=== PATIENT | female | born 1990 | race African-American/Black ===

== ENCOUNTER 2016-08-26 02:09 | Inpatient (IN) | payer MEDICAID ==
[~2016-08-26] VITALS: Ht 160 cm; Wt 56.7 kg
[~2016-08-26 02:09] MED LIST: PREN27TA7 OR
[2016-08-26 02:42] LABS: Urine RBC None Seen /hpf (0 - 4)
[2016-08-26 02:51] LABS: Urine Bilirubin Negative (Negative); Urine Blood Negative /uL (Negative); Urine Color Yellow (Yellow); Urine Glucose Normal (Normal); Urine Ketone Negative (Negative); Urine Nitrite Negative (Negative); Urine Squamous Epithelial Cell FEW /hpf (<5); Urine Urobilinogen Normal (Negative); Urine pH 6.5 (5.0-8.0)
[2016-08-26] MEDS ORDERED: LACTATED RINGER'S 1,000 ML IV SCH (03:05)
[2016-08-26] MEDS ORDERED: LACT. RINGERS/OXYTOCIN 20UNITS 1,000 ML IV SCH ×2 (03:05→09:56)
[2016-08-26] MEDS ORDERED: LIDOCAINE 2%HCL (LOCAL ANESTH.) INJ 20ML MDV IJ PRN (03:15)
[2016-08-26] MEDS ORDERED: WITCH HAZEL-GLYCERIN PAD TOP PRN (03:15)
[2016-08-26] MEDS ORDERED: PENICILLIN G POT 5MIL/D5 50ML 50 ML IV ONE (03:15)
[2016-08-26] MEDS ORDERED: NALBUPHINE HCL 10 MG/1ml INJECTION IV PRN (03:15)
[2016-08-26] MEDS ORDERED: DERMOPLAST 60ML BOTTLE TOP PRN (03:15)
[2016-08-26] MEDS ORDERED: PHISODERM TOP SOLN 240ML BTL TOP PRN (03:15)
[2016-08-26] MEDS ORDERED: BUTORPHANOL TARTRATE 2 MG/1 ML VIAL IV PRN (03:32)
[2016-08-26 04:06] LABS: Basophils # (auto) 0 uL; Basophils % (auto) 0.3 % (0.0-2.0); CONDITION AutoValidated; DEFINITIVE SEE PRINTOUT; Eosinophils # (auto) 0 uL; Eosinophils % (auto) 0.2 % (0.0-7.0); Hematocrit 23.9 % (36.0-46.0); Lymphocytes # (auto) 1.4 uL; Lymphocytes % (auto) 14.6 % (10.0-50.0); Mean Corpuscular Hemoglobin 30.5 pg (28.0-32.0); Mean Corpuscular Hgb Conc. 33.3 g/dL (32.0-36.0); Mean Corpuscular Volume 91.7 fL (80.0-100.0); Mean Platelet Volume 8.5 fL (7.4-10.4); Monocytes # (auto) 0.7 uL; Monocytes % (auto) 6.6 % (0.0-12.0); Neutrophils # (auto) 7.7 uL; Neutrophils % (auto) 78.3 % (37.0-80.0); Red Cell Distribution Width 13.5 % (11.6-16.0); White Blood Cell 9.9 10^3/uL (4.4-10.8)
[2016-08-26 04:07] LABS: Platelet Count (auto) 233 10^3/uL (140-450)
[2016-08-26 04:14] LABS: Albumin 2.7 g/dL (3.4-5.0); BUN/Creatinine Ratio 13.3; Calcium 8.2 mg/dL (8.5-10.1); Potassium 3.4 mmol/L (3.5-5.1)
[2016-08-26 04:16] LABS: Bilirubin, Total 0.5 mg/dL (0.2-1.0); Total Protein 6.4 g/dL (6.4-8.2)
[2016-08-26 04:34] LABS: INR 0.92 (0.9-1.15); Partial Thromboplastin Time 25.9 sec (22.64-33.71)
[2016-08-26] MEDS ORDERED: fentaNYL W ROPIVACAINE 150 ML EPI SCH ×2 (05:15→06:00)
[2016-08-26] MEDS ORDERED: ePHEDrine SULFATE 50 MG/ML AMP IV ONE ×2 (05:15→06:00)
[2016-08-26] MEDS ORDERED: LIDOCAINE HCL 2 %PF INJ 10ML AMP IJ ONE (05:15)
[2016-08-26] MEDS ORDERED: NALOXONE HCL 0.4 MG/ML VIAL IV ONE ×2 (05:15→06:00)
[2016-08-26] MEDS ORDERED: fentaNYL CITRATE 100 MCG/2 ML VL IV ONE (05:15)
[2016-08-26] MEDS ORDERED: OXYTOCIN 10UNIT/ML 1ML VIAL ONE (07:04)
[2016-08-26] MEDS ORDERED: PENICILLIN G POTASSIUM 2,500,000 UNITS in D5W 5% 50 ML IV SCH (07:15)
[2016-08-26 08:00] VITALS: BP 139/68
[2016-08-26] MEDS ORDERED: LACT. RINGERS/OXYTOCIN 20UNITS 500 ML IV ONE (08:56)
[2016-08-26 09:00] VITALS: BP 127/84
[2016-08-26] MEDS ORDERED: ACETAMINOPHEN 325 MG TAB PO PRN (09:00)
[2016-08-26] MEDS: IBUPROFEN 600 MG TAB PO PRN ×2 (09:32→21:04)
[2016-08-26 11:53] VITALS: BP 100/71
[2016-08-26 16:05] VITALS: BP 115/75
[2016-08-26 19:15] VITALS: BP 111/63
[2016-08-26] MEDS ORDERED: MAGNESIUM SULFATE 40MG/ML 0 ML IV ONE (21:18)
[2016-08-26 23:00] VITALS: BP 125/66
[2016-08-27 03:35] VITALS: BP 106/64
[2016-08-27] MEDS ORDERED: TETANUS-DIPTH-ACEL PERTUSSIS 0.5ML SYRG IM ONE (07:15)
[2016-08-27 08:25] VITALS: BP 129/69
[2016-08-27] MEDS: IBUPROFEN 600 MG TAB PO PRN (09:50)
[2016-08-27 12:00] VITALS: BP 119/61
[2016-08-27 12:20] VITALS: BP 119/61
== END 2016-08-27 12:20 | disposition home or self-care (01) | DRG 560 ==
LOC: LDRP 02:09 → OBSVTOIN 02:09 → LDRP 08-27 01:43
PROVIDERS: ADMIT Obstetrics & Gynecology; ATTEND Obstetrics & Gynecology
PROC: 10E0XZZ Delivery of Products of Conception, External Approach (ICD-10-PCS; principal; 2016-08-26)
PROC: 10907ZC Drainage of Amniotic Fluid, Therapeutic from Products of Conception, Via Natural or Artificial Opening (ICD-10-PCS; 2016-08-26)
PROC: 3E0S3CZ (ICD-10-PCS; 2016-08-26)
PROC: 00HU33Z Insertion of Infusion Device into Spinal Canal, Percutaneous Approach (ICD-10-PCS; 2016-08-26)
DX: O62.3 Precipitate labor (principal); O24.420 Gestational diabetes mellitus in childbirth, diet controlled; O69.81X0 Labor and delivery complicated by cord around neck, without compression, not applicable or unspecified; Z37.0 Single live birth; Z3A.37 37 weeks gestation of pregnancy; Z23 Encounter for immunization
CPT/HCPCS: 36415; 51702; 59025; 59409; 62282; 80053; 80307; 81001; 81002; 82948; 82962; 85025; 85610; 85730; 86850; 86900; 86901; 86920; 90715; 94760; 96365; 96366; 96372; J2540; J2590; J3010; J7060

== ENCOUNTER 2024-10-24 20:53 | Emergency (ER) | payer MEDICAID ==
[~2024-10-24] VITALS: Ht 157.5 cm; Wt 38.2 kg
[2024-10-24 20:56] VITALS: BP 95/47; PULSE 75; RESP 16; TEMP 98.2; O2SAT 100
[2024-10-24] MEDS ORDERED: HYDROcodone-ACET 5/325MG TAB PO ONE (22:45)
[2024-10-24] MEDS ORDERED: IBUPROFEN 600 MG TAB PO ONE (22:45)
--- NOTE | 2024-10-24 22:46 | ED.PDOC ---
Musculoskeletal HPI Comments 34 y/o F presents with c/c left hand digits 1 and 3 pain, swelling, and stiffness. Patient endorses on 1x week history of symptoms following unprovoked and atraumatic onset. No reports of any pertinent history. Denies any numbness, tingling, or further associated symptoms. Chief Complaint: Upper Extremity Time Seen by MD: 22:15 Reviewed Notes: Nurses Notes, Medications, Allergies Allergies: Coded Allergies: NO KNOWN ALLERGIES (Verified , 09/24/09) Home Meds Reported Medications Vit W/ Ferrous Fumara () 1 Tab Tab, 1 TAB OR DAILY, TAB 03/18/14 Information Source: Patient Mode of Arrival: Ambulatory Location: Left Extremity Location: Finger 3, Thumb Timing: Weeks Prehospital treatment: None Past Medical History PAST MEDICAL HISTORY: Denies Surgical History: Denies all surgeries SOURCE INSPECTOR History: No Pertinent SOURCE INSPECTOR History Family History Family History: Unknown Social History Smoker: Cigarettes Alcohol: Denies ETOH Use Drugs: Denies Drug Use Lives In: Home All Other Systems: Reviewed and Negative (Comprehensive systems review obtained and negative except for what is stated in the HPI.) Physical Exam General Appearance: No Apparent Distress, Thin HEENT: Normal ENT Inspection, Pharynx Normal, TMs Normal Neck: Full Range of Motion, Non-Tender, Normal, Normal Inspection Respiratory: Chest Non-Tender, Lungs Clear, No Accessory Muscle Use, No Respiratory Distress, Normal Breath Sounds Cardiovascular: No Edema, No JVD, No Murmur, No Gallop, Normal Peripheral Pulses, Regular Rate/Rhythm Breast Exam: Deferred Gastrointestinal: No Organomegaly, Non Tender, No Pulsatile Mass, Normal Bowel Sounds, Soft Genitalia: Deferred Pelvic: Deferred Rectal: Deferred Extremities: No calf tenderness, Normal capillary refill, Normal inspection, Normal range of motion, Non-tender, No pedal edema Musculoskeletal : Apperance: Normal Neurologic: Alert, mattress renovator II-XII nml as Tested, No Motor Deficits, Normal Affect, Normal Mood, No Sensory Deficits Cerebellar Function: Normal Reflexes: Normal Skin: Dry, Normal Color, Warm Lymphatic: No Adenopathy Was a procedure done? Was a procedure done?: No Differential Diagnosis EXT Differential Diagnosis: Cellulitis, Fracture, Sprain, Dislocation, Strain, Other (trigger finger ) X-Ray, Labs, Meds, VS Vital Signs Date Time Temp Pulse Resp B/P (MAP) Pulse Ox O2 Delivery O2 Flow Rate FiO2 10/24/24 20:56 98.2 75 16 95/47 100 98.2 Time of 1ST Reevaluation: 22:45 Reevaluation 1ST: Unchanged Patient Education/Counseling: Need For Follow Up Family Education/Counseling: No Family Present Departure 1 Departure Time of Disposition: 01:01 Impression: Primary Impression: Trigger finger Qualified Codes: M65.312 - Trigger thumb, left thumb Disposition: 07 LEFT AWOL/ELOPED Condition: Good Discharged With: Self Critical Care Note Critical Care Time?: No Stability Stability form required: No Heart Score Heart Score: Heart Score Response (Comments) Value History N/A 0 EKG N/A 0 Age N/A 0 Risk Factors N/A 0 Troponin N/A 0 Total 0 I personally scribed for ER ([email or web address]) on 10/24/24 at 22:46. Electronically submitted by Sandeep Bowman ([email or web address]). I personally scribed for ER ([email or web address]) on 10/24/24 at 22:47. Electronically submitted by Sandeep Bowman ([email or web address]). ER Oct 24, 2024 22:46 SOHEILA SAMANIEGO [employer] WORK[employer] Oct 25, 2024 01:01
== END 2024-10-25 00:59 | disposition left against medical advice (07) ==
LOC: ER 20:53
DX: M65.312 Trigger thumb, left thumb (principal); F17.210 Nicotine dependence, cigarettes, uncomplicated; Z79.899 Other long term (current) drug therapy

== ENCOUNTER 2024-11-01 20:28 | Emergency (ER) | payer MEDICAID ==
[~2024-11-01] VITALS: Ht 157.5 cm; Wt 48.0 kg
[2024-11-01 20:30] VITALS: TEMP 98.5
[2024-11-02 00:01] VITALS: BP 119/64; PULSE 130; RESP 22; O2SAT 97
--- NOTE | 2024-11-02 00:09 | ED.PDOC ---
General HPI Comments 34-year-old female presents to ER with complaints of flank pain x3 days. Patient reports that she has been experiencing right sided flank pain and increase in urination x3 days with associated chills and intermittent nausea/vomiting x1 day. She rates her current right sided flank pain an 8/10 with radiation towards her right lower pelvic region. Patient presents to ER ambulatory on arrival, with steady gait, in no distress. Denies fever, shortness of breath, chest pain, dizziness, further changes in urination or any further symptoms/complaints Chief Complaint: Flank Pain Time Seen by MD: 23:27 Primary Care Provider: UNKNOWN Reviewed notes: Nurses Notes, Medications, Allergies Allergies: Coded Allergies: NO KNOWN ALLERGIES (Verified , 09/24/09) Home Meds Reported Medications Vit W/ Ferrous Fumara () 1 Tab Tab, 1 TAB OR DAILY, TAB 03/18/14 Information Source: Patient Mode of Arrival: Ambulatory Past Medical History PAST MEDICAL HISTORY: Denies Surgical History: Denies all surgeries PROFILE GRINDER TECHNICIAN History: No Pertinent PROFILE GRINDER TECHNICIAN History Family History Family History: Unknown Social History Smoker: Cigarettes, Less Than 1 Pack/Day Alcohol: Denies ETOH Use Drugs: Denies Drug Use Lives In: Home Constitutional: reports: others (As stated in HPI) EENTM: denies: blurred vision, double vision, ear bleeding, ear discharge, ear drainage, ear pain, ear ringing, eye pain, eye redness, hearing loss, mouth pain, mouth swelling, nasal discharge, nose bleeding, nose congestion, nose pain, photophobia, tearing, throat pain, throat swelling, voice changes, others Respiratory: denies: cough, hemoptysis, orthopnea, SOB at rest, shortness of breath, SOB with excertion, stridor, wheezing, others Cardiovascular: denies: chest pain, dizzy spells, diaphoresis, Dyspnea on exertion, edema, irregular heart beat, left arm pain, lightheadedness, palpitations, PND, syncope, others Gastrointestinal: reports: others (As stated in HPI) Genitourinary: reports: others (As stated in HPI) Neurological: denies: dizziness, fainting, headache, left sided numbness, left sided weakness, numbness, paresthesia, pre-existing deficit, right sided numbness, right sided weakness, seizure, speech problems, tingling, tremors, weakness, others Musculoskeletal: denies: back pain, gout, joint pain, joint swelling, muscle pain, muscle stiffness, neck pain, others Integumetry: denies: bruises, change in color, change in hair/nails, dryness, laceration, lesions, lumps, rash, wounds, others Allergic/Immunocompromised: denies: Difficulty Healing, Frequent Infections, Hives, Itching, others Hematologic/Lymphatic: denies: anemia, blood clots, easy bleeding, easy bruising, swollen glands, others Endocrine: denies: excessive hunger, excessive sweating, excessive thirst, excessive urination, flushing, intolerance to cold, intolerance to heat, unexplained weight gain, unexplained weight loss, others Psychiatric: denies: anxiety, bipolar disorder, depression, hopeless, panic disorder, schizophrenia, sleepless, suicidal, others Physical Exam General Appearance: No Apparent Distress HEENT: PERRL/EOMI Neck: Full Range of Motion, Non-Tender, Normal Respiratory: Chest Non-Tender, Lungs Clear, No Accessory Muscle Use, No Respiratory Distress, Normal Breath Sounds Cardiovascular: No Murmur, No Gallop, Regular Rate/Rhythm Breast Exam: Deferred Gastrointestinal: No Organomegaly, Non Tender (No TTP to abdomen appreciated), No Pulsatile Mass, Normal Bowel Sounds, Soft Genitalia: Deferred Pelvic: Deferred Rectal: Deferred Extremities: Normal capillary refill, Normal range of motion Musculoskeletal : Extremity Location: Back (Positive CVA tenderness on right) Neurologic: Alert, quarantine inspector II-XII nml as Tested, No Motor Deficits, Normal Affect, Normal Mood, No Sensory Deficits Cerebellar Function: Normal Reflexes: Normal Skin: Dry, Normal Color, Warm Peripheral Pulses: 2+ Radial (R), 2+ Radial (L), 2+ Brachial (R), 2+ Brachial (L) Lymphatic: No Adenopathy Was a procedure done? Was a procedure done?: No Sedation Sedation?: No Differential Diagnosis Kidney stone (Female): N/A Urinary Problem (Female): Intrauterine , Urinary retention, Urolithiasis, Other (urosepsis) X-Ray, Labs, Meds, VS Vital Signs Date Time Temp Pulse Resp B/P (MAP) Pulse Ox O2 Delivery O2 Flow Rate FiO2 11/02/24 00:01 130 22 119/64 (82) 97 11/01/24 20:30 98.5 121 20 104/46 100 98.5 Lab Test 11/02/24 02:40 11/01/24 23:59 11/01/24 23:58 Range/Units Lactic Acid Level 1.9 2.8 *H 0.4-2.0 mmol/L White Blood Count 10.2 4.4-10.8 10^3/uL Red Blood Count 4.44 4.0-5.20 10^6/uL Hemoglobin 14.4 12.2-16.2 g/dL Hematocrit 41.7 36.0-46.0 % Mean Corpuscular Volume 94.0 80.0-100.0 fL Mean Corpuscular Hemoglobin 32.4 H 28.0-32.0 pg Mean Corpuscular Hemoglobin Concent 34.5 32.0-36.0 g/dL Red Cell Distribution Width 13.0 11.8-14.3 % Platelet Count 289 140-450 10^3/uL Mean Platelet Volume 8.4 6.9-10.8 fL Neutrophils (%) (Auto) 77.6 37.0-80.0 % Lymphocytes (%) (Auto) 11.9 10.0-50.0 % Monocytes (%) (Auto) 9.8 0.0-12.0 % Eosinophils (%) (Auto) 0.0 0.0-7.0 % Basophils (%) (Auto) 0.7 0.0-2.0 % Neutrophils # (Auto) 7.9 1.6-8.6 10 ^3/uL Lymphocytes # (Auto) 1.2 0.4-5.4 10 ^3/uL Monocytes # (Auto) 1.0 0-1.3 10 ^3/uL Eosinophils # (Auto) 0 0-0.8 10 ^3/uL Basophils # (Auto) 0.1 0-0.2 10 ^3/uL Nucleated Red Blood Cells 0.0 % Sodium Level 131 L 136-145 mmol/L Potassium Level 4.3 3.5-5.1 mmol/L Chloride Level 99 98-107 mmol/L Carbon Dioxide Level 21 20-31 mmol/L Anion Gap 11 5-15 Blood Urea Nitrogen 15 9-23 mg/dL Creatinine 1.06 H 0.550-1.02 mg/dL Glomerular Filtration Rate Calc 70 >90 mL/min BUN/Creatinine Ratio 14.2 10.0-20.0 Serum Glucose 110 H 74-106 mg/dL Calcium Level 10.3 8.7-10.4 mg/dL Total Bilirubin 0.5 0.2-1.0 mg/dL Aspartate Amino Transferase (AST) 16 13-40 U/L Alanine Aminotransferase (ALT) < 9 7-40 U/L Alkaline Phosphatase 125 H 46-116 U/L Total Protein 8.6 H 5.7-8.2 g/dL Albumin 5.1 H 3.2-4.8 g/dL Lipase 30 12-53 U/L Urine Color Light-orange Yellow Urine Clarity Turbid H Clear Urine pH 5.5 5.0-9.0 Urine Specific [place] 1.019 1.001-1.035 Urine Protein 1+ H Negative Urine Ketones Negative Negative Urine Blood 2+ H Negative /uL Urine Nitrite Negative Negative Urine Bilirubin Negative Negative Urine Urobilinogen Normal Negative mg/dL Urine Leukocyte Esterase 3+ Negative /uL Urine RBC 15 0 - 4 /hpf Urine WBC Clumps Present None Seen /hpf Urine Microscopic WBC 184 H 0-5 /HPF Urine Squamous Epithelial Cells Few <5 /hpf Urine Bacteria Many H None Seen /hpf Urine Mucus Few None Seen Urine Glucose Normal Normal mg/dL Urine Test Negative Negative PATIENT: ROSA JOET: [id number]: [id number] : 1990 LOC: ER ROOM / BED: / AGE / SEX: 34 / F ADM STATUS: REG ER SERVICE [id number] ORDERING PHYSICIAN: MELISSA PORTILLO DO PROCEDURE(s): ABPL - CT AB PEL WO CON-NO ORAL OR IV REASON: abd pain , FP ORDER NUMBER(s): [id number], ACCESSION NUMBER(s): [id number] Exam: CT CT AB PEL WO CON-NO ORAL OR IV History: abd pain , FP Comparison Study: None Technique: Multidetector spiral CT of the abdomen was performed from lung bases to pubic symphysis. Imaging was performed without IV contrast. Axial, coronal and sagittal multiplanar reformats were obtained from the axial data set by the technologist. Radiation Dose : 1. Abdomen/Pelvis: CTDIvol 5.07 mGy, DLP 5.07 mGy*cm. Findings: Evaluation of solid organs is limited due to lack of intravenous contrast use. Assessment and further limited by lack of peritoneal fat. Lower Chest: No acute findings. Liver: Unremarkable. Gallbladder and Biliary Tree: Unremarkable Pancreas: Unremarkable. Spleen: Unremarkable. Adrenal Glands: Unremarkable. Kidneys/Ureters: No urinary stone or obstruction. Bladder: Grossly unremarkable for degree of distention. Pelvic Organs: IUD appears appropriately positioned. Bowel: Normal caliber without wall thickening. Moderate pancolonic stool burden. Nonvisualized appendix. Vasculature: Unremarkable. Lymphadenopathy: No obvious adenopathy. Peritoneum: No ascites, free air, or fluid collection. Abdominal Wall: No significant hernia. Musculoskeletal: No acute findings. IMPRESSION: 1. Limited exam. No obvious acute abdominopelvic abnormality. 2. Moderate stool burden. Radiation optimization: All CT scans at this facility use at least one of these dose optimization techniques: automated exposure control mA and/or kV adjustment per patient size (includes targeted exams where dose is matched to clinical indication) or iterative reconstruction. ATED BY: CHAYO BRAND MD DICTATED DATE/TIME: 11/02/24136 SIGNED BY: CHAYO BRAND MD SIGNED DATE/TIME: 11/02/24136 CC: CBC reviewed without any significant abnormalities CMP reviewed-sodium 131, GFR 70, creatinine 1.06 Lactic acid reviewed-2.8 Repeat lactic acid ordered Blood cultures ordered Urine culture ordered Urine reviewed-negative Urinalysis reviewed-urine blood 2+, urine leukocyte esterase 3+, urine nitrites negative Hep-Lock IV ordered NS IV ordered Rocephin 1 g IV ordered Patient admitted to hospitalist for acute pyelonephritis and need for IV antibiotics Images Reviewed?: Images reviewed and evaluated by me Time of 1ST Reevaluation: 00:08 Reevaluation 1ST: N/A Patient Education/Counseling: Diagnosis, Treatment, Prognosis, Need For Follow Up Family Education/Counseling: No Family Present SEPSIS Sepsis Screen Date sepsis recognized/suspect: Nov 01, 2024 Time Sepsis recognized/suspect: 2033 Recent Procedure: No On Antibiotic Therapy: No Respiratory Rate >20: No Heart Rate >90: Yes Temp<36 C (96.8 F) or >38.3 C: No SBP <90 or MAP <65 mmHG: No New Acute Mental Status Change: No Is the patient on CPAP, BIPAP,: No Physician Orders Revenue Enforcement Agent (11/01/24 ) Ct Ab Pel Wo Con-No Oral Or Iv (11/01/24 21:54) Heplock Iv (11/02/24 ) Urine Bacterial Culture (11/02/24 01:41) Blood Culture (11/02/24 01:41) Beta Hcg, Quantitative (11/02/24 04:41) Ceftriaxone 1gm/50ml D5w (Rocephin) (11/02/24 10:00) Sodium Chloride 0.9% (11/02/24 04:45) Sodium Chloride 0.9% (11/02/24 04:45) Vital Signs Date Time Temp Pulse Resp B/P (MAP) Pulse Ox O2 Delivery O2 Flow Rate FiO2 11/02/24 00:01 130 22 119/64 (82) 97 11/01/24 20:30 98.5 121 20 104/46 100 98.5 Laboratory Tests Test 11/01/24 23:59 11/02/24 02:40 Lactic Acid Level 2.8 mmol/L (0.4-2.0) *H 1.9 mmol/L (0.4-2.0) White Blood Count 10.2 10^3/uL (4.4-10.8) Departure 1 Departure Time of Disposition: 01:40 Impression: Primary Impression: Acute pyelonephritis Additional Impression: Sepsis Qualified Codes: A41.9 - Sepsis, unspecified organism Disposition: ADMITTED INPATIENT Condition: Serious Critical Care Note Critical Care Time?: No Stability Stability form required: No Heart Score Heart Score: Heart Score Response (Comments) Value History N/A 0 EKG N/A 0 Age N/A 0 Risk Factors N/A 0 Troponin N/A 0 Total 0 WILLAM ARIAS Nov 02, 2024 00:09
[2024-11-02] MEDS ORDERED: SODIUM CHLORIDE 0.9% 1,000 ML IV ONE ×2 (00:15→04:45)
[2024-11-02 00:47] LABS: Hematocrit 41.7 % (36.0-46.0); Hemoglobin 14.4 g/dL (12.2-16.2); Mean Corpuscular Hemoglobin 32.4 pg (28.0-32.0); Mean Corpuscular Volume 94.0 fL (80.0-100.0); Nucleated Red Blood Cells % 0.0 %
[2024-11-02 00:57] LABS: Urine Protein, UAD 1+ (Negative); Urine WBC Clumps PRESENT /hpf (None Seen)
[2024-11-02 00:58] LABS: Anion Gap 11 (5-15); BUN/Creatinine Ratio 14.2 (10.0-20.0); Bilirubin, Total 0.5 mg/dL (0.2-1.0); Blood Urea Nitrogen 15 mg/dL (9-23); Calcium 10.3 mg/dL (8.7-10.4); Carbon Dioxide 21 mmol/L (20-31); Chloride 99 mmol/L (98-107); Lipase 30 U/L (12-53); Potassium 4.3 mmol/L (3.5-5.1)
[2024-11-02 01:14] LABS: Lactic Acid w/Reflex 2.8 mmol/L (0.4-2.0)
[2024-11-02 01:15] LABS: Alanine Aminotransferase < 9 U/L (7-40); Albumin 5.1 g/dL (3.2-4.8); Alkaline Phosphatase 125 U/L (46-116); Glucose 110 mg/dL (74-106); Sodium 131 mmol/L (136-145); Total Protein 8.6 g/dL (5.7-8.2)
[2024-11-02] MEDS ORDERED: cefTRIAXone 1GM/50ML D5W 50 ML IV ONE (01:30)
--- NOTE | 2024-11-02 01:40 | DVH ---
Exam: CT CT AB PEL WO CON-NO ORAL OR IV History: abd pain , FP Comparison Study: None Technique: Multidetector spiral CT of the abdomen was performed from lung bases to pubic symphysis. I maging was performed without IV contrast. Axial, coronal and sagittal multiplanar reformats were obta ined from the axial data set by the technologist. Radiation Dose : 1. Abdomen/Pelvis: CTDIvol 5.07 mGy, DLP 5.07 mGy*cm. Findings: Evaluation of solid organs is limited due to lack of intravenous contrast use. Assessment and further limited by lack of peritoneal fat. Lower Chest: No acute findings. Liver: Unremarkable. Gallbladder and Biliary Tree: Unremarkable Pancreas: Unremarkable. Spleen: Unremarkable. Adrenal Glands: Unremarkable. Kidneys/Ureters: No urinary stone or obstruction. Bladder: Grossly unremarkable for degree of distention. Pelvic Organs: IUD appears appropriately positioned. Bowel: Normal caliber without wall thickening. Moderate pancolonic stool burden. Nonvisualized append ix. Vasculature: Unremarkable. Lymphadenopathy: No obvious adenopathy. Peritoneum: No ascites, free air, or fluid collection. Abdominal Wall: No significant hernia. Musculoskeletal: No acute findings. IMPRESSION: 1. Limited exam. No obvious acute abdominopelvic abnormality. 2. Moderate stool burden. Radiation optimization: All CT scans at this facility use at least one of these dose optimization shantell hniques: automated exposure control mA and/or kV adjustment per patient size (includes targeted exam s where dose is matched to clinical indication) or iterative reconstruction.
[2024-11-02] MEDS ORDERED: SODIUM CHLORIDE 0.9% 500 ML IV ONE (04:45)
[2024-11-02] MEDS ORDERED: cefTRIAXone 1GM/50ML D5W 50 ML IV SCH (10:00)
== END 2024-11-02 05:26 | disposition left against medical advice (07) ==
LOC: ER 20:28
DX: A41.9 Sepsis, unspecified organism (principal); N10 Acute pyelonephritis; F17.210 Nicotine dependence, cigarettes, uncomplicated
CPT/HCPCS: 36415; 74176; 80053; 81001; 81025; 83605; 83690; 85025; 87040; 87086